=== PATIENT | female | born 1975 | race Caucasian/White ===

== ENCOUNTER 2024-02-19 12:20 | Observation (INO) | payer BC ==
[2024-02-19] MEDS ORDERED: diphenhydrAMINE 25 MG CAP PO PRN (13:22)
[2024-02-19 14:07] LABS: #Basophils 0.04 10x3/uL (0.0-0.2); #Eosinphils 0.51 10x3/uL (0.0-0.5); #Monocytes 0.35 10x3/uL (0.0-1.1); #Neutrophils 4.55 10x3/uL (1.5-8.4); %Basophils 0.6 % (0.0-2.0); %Eosinophils 7.8 % (0.0-6.0); %Lymphocytes 16.4 % (18.0-47.0); %Monocytes 5.4 % (0.0-10.0); %Neutrophils 69.5 % (40.0-75.0); Hematocrit 33.6 % (34.9-44.5); Hemoglobin 11.1 g/dL (12.0-15.5); Mean Corpuscular Hemoglobin 30.9 pg (27.0-33.0); Mean Corpuscular Volume 93.6 fL (81.6-98.3); Mean Platelet Volume 9.2 fL (7.4-10.4); Platelet Count 343 10x3/uL (150-450); Red Blood Cell (RBC) Count 3.59 10x6/uL (3.90-5.03); White Blood Cell (WBC) Count 6.5 10x3/uL (3.5-10.5)
[2024-02-19] MEDS: Clindamycin/D5W 900 MG in Premix 1 BAG IVPB SCH (14:21)
[2024-02-19] MEDS: Lactated Ringer's 1,000 ML IV SCH (14:21)
[2024-02-19 14:23] LABS: ALT (SGPT) 45 U/L (8-55); AST (SGOT) 20 U/L (5-34); Albumin 2.9 g/dL (3.5-5.0); Alkaline Phosphatase 203 U/L (40-110); Anion Gap 14 mmol/L (10-20); BUN (Urea Nitrogen) 13 mg/dL (7.0-18.7); Bilirubin, Total 0.3 mg/dL (0.2-1.2); Calc. Creatinine Clearance 0 mL/min (70-130); Calcium 9.3 mg/dL (7.8-10.44); Carbon Dioxide 25 mmol/L (22-29); Chloride 103 mmol/L (98-107); Estimated GFR 72; Globulin 3.3 g/dL (2.4-3.5); Glucose 192 mg/dL (70-105); Potassium 3.7 mmol/L (3.5-5.1); Protein, Total 6.2 g/dL (6.0-8.3); Sodium 138 mmol/L (136-145)
[2024-02-19] MEDS: fentaNYL 50 mcg/mL 1 mL Vial SLOW IVP PRN (14:34)
[2024-02-19] MEDS: HYDROcodone/Acetaminophen 7.5/325 mg Tablet PO PRN (14:37)
[2024-02-19] MEDS: Piperacillin/Tazobactam 3.375 GM in Sodium Chloride 0.9% 100 ML IVPB SCH ×2 (15:56→19:45)
[2024-02-19 18:02] VITALS: BMI 21.1
[2024-02-20] MEDS: Saccharomyces boulardii 250 MG CAP PO SCH (11:29)
[2024-02-20] MEDS: Loperamide HCl 2 MG CAP PO SCH ×2 (11:29→14:27)
[2024-02-20] MEDS: hydrOXYzine 25 MG TAB PO SCH (16:04)
[2024-02-20] MEDS: hydrOXYzine 25 MG TAB PO PRN (22:29)
[2024-02-21] MEDS: Loperamide HCl 2 MG CAP PO SCH (02:19)
[2024-02-21] MEDS: Saccharomyces boulardii 250 MG CAP PO SCH (09:07)
[2024-02-21] MEDS ORDERED: Loperamide HCl 2 MG CAP PO SCH ×2 (11:00→11:15)
[2024-02-21] MEDS ORDERED: Acetaminophen 500 MG TAB PO PRN (11:12)
[2024-02-21] MEDS: Ibuprofen 200 MG TAB PO PRN (11:25)
[2024-02-21] MEDS ORDERED: Loperamide HCl 2 MG CAP PO PRN (13:07)
[2024-02-21 17:14] VITALS: BP 138/80; TEMP 98.9
== END 2024-02-21 18:25 | disposition home or self-care (01) ==
LOC: CSHPP 12:43 → INTOOBSV 12:43 → CSHPP 13:33
PROVIDERS: ADMIT Obstetrics & Gynecology; ATTEND Obstetrics & Gynecology
DX: N76.4 Abscess of vulva (principal); E03.9 Hypothyroidism, unspecified; E11.9 Type 2 diabetes mellitus without complications; M47.22 Other spondylosis with radiculopathy, cervical region; Z79.899 Other long term (current) drug therapy; Z79.890 Hormone replacement therapy; Z98.890 Other specified postprocedural states; Z90.710 Acquired absence of both cervix and uterus; Z88.5 Allergy status to narcotic agent
CPT/HCPCS: 36415; 80053; 85025; 87070; 87077; 87186; 87205; J2543; J3010; J3490; J7120